=== PATIENT | male | born 1970 | race Caucasian/White ===

== ENCOUNTER 2016-05-19 10:13 | Emergency (ER) | payer MEDICARE | END 2016-05-19 11:25 | disposition home or self-care (01) | LOC: ER1 10:13 | DX: B37.0 Candidal stomatitis (principal); I10 Essential (primary) hypertension; F17.210 Nicotine dependence, cigarettes, uncomplicated | CPT/HCPCS: 99282 ==

== ENCOUNTER 2016-06-04 09:04 | Emergency (ER) | payer MEDICARE ==
[2016-06-04 09:42] LABS: HEMOGLOBIN 15.4 gm/dl (14.0-17.5); RED BLOOD COUNT 4.91 M/UL (4.20-5.50); WHITE BLOOD COUNT 6.1 K/UL (4.5-11.0)
[2016-06-04 09:52] LABS: BUN/CREATININE RATIO 27 (0-10)
== END 2016-06-04 14:50 | disposition home or self-care (01) ==
LOC: ER1 09:04
PROVIDERS: Emergency Medicine
DX: R31.9 Hematuria, unspecified (principal); K56.41 Fecal impaction; B17.9 Acute viral hepatitis, unspecified; I10 Essential (primary) hypertension; F17.210 Nicotine dependence, cigarettes, uncomplicated; Z79.899 Other long term (current) drug therapy
CPT/HCPCS: 36415; 76870; 80053; 80074; 81001; 82150; 83690; 85025; 87086; 96360; 99284; J7030; J7050; Q9962

== ENCOUNTER 2016-06-09 21:04 | Emergency (ER) | payer MEDICARE | END 2016-06-09 22:30 | disposition left against medical advice (07) | LOC: ER1 21:04 | DX: R10.30 Lower abdominal pain, unspecified (principal); F17.210 Nicotine dependence, cigarettes, uncomplicated | CPT/HCPCS: 36415; 99284 ==

== ENCOUNTER 2020-09-20 17:21 | Inpatient (IN) | payer OTHER ==
[~2020-09-20] VITALS: Ht 162.6 cm; Wt 104.3 kg
[~2020-09-20 17:21] MED LIST: DELSYM30 MG/5 ML PO; FLONASE 0.05% N16 GM; LISINOPRIL10 MG PO
[2020-09-20 18:33] LABS: HEMOGLOBIN 11.6 gm/dl (14.0-17.5); RED BLOOD COUNT 3.93 M/UL (4.20-5.50); WHITE BLOOD COUNT 11.6 K/UL (4.5-11.0)
[2020-09-20 18:49] LABS: BUN/CREATININE RATIO 20 (0-10)
[2020-09-20 21:51] LABS: BUN/CREATININE RATIO 17 (0-10)
[2020-09-21 07:03] LABS: HEMOGLOBIN 11.9 gm/dl (14.0-17.5); RED BLOOD COUNT 3.9 M/UL (4.20-5.50); WHITE BLOOD COUNT 9.4 K/UL (4.5-11.0)
[2020-09-21 07:26] LABS: BUN/CREATININE RATIO 16 (0-10)
[2020-09-22 05:54] LABS: HEMOGLOBIN 10.9 gm/dl (14.0-17.5); RED BLOOD COUNT 3.6 M/UL (4.20-5.50); WHITE BLOOD COUNT 10.2 K/UL (4.5-11.0)
[2020-09-22 08:21] LABS: BUN/CREATININE RATIO 24 (0-10)
[2020-09-23 06:02] LABS: HEMOGLOBIN 11.6 gm/dl (14.0-17.5); RED BLOOD COUNT 3.84 M/UL (4.20-5.50)
[2020-09-23 06:12] LABS: BUN/CREATININE RATIO 20 (0-10)
--- NOTE | 2020-09-24 03:43 | NUR ---
2199 DAMIAN PRITCHETT NOTIFIED OF PATIENT GLUCOSE OF 533. RECIEVED ORDERS TO COVER PATIENT WITH 5 MORE UNITS OF INSULIN ON TOP OF WHAT HE RECIEVED WITH HIS SLIDING SCALE COVERAGE. PATIENT HAS NO COMPLAINTS AT THIS TIME BESIDES THIRST. PATIENT WAS ASKING FOR GRAM CRACKERS AND INFORMED PATIENT THAT HIS IS ON A DIABETIC DIET. PATIENT VERBALIZED UNDERSTANDING
[2020-09-24 07:14] LABS: HEMOGLOBIN 11.4 gm/dl (14.0-17.5); RED BLOOD COUNT 3.73 M/UL (4.20-5.50)
--- NOTE | 2020-09-24 07:14 | NUR ---
TELE NOTIFIED NURSING OF PATIENT GOING INTO AFIB WITH RVR X 2 WITH HR GOING UP TO 150'S THEN BRADYING DOWN TO 50'S, AND A COUPLE RUNS OF SVT. MACHINIST APPRENTICE MD MARTIN NOTIFIED. NEW TELEPHONE ORDERS FOR 12 LEAD EKG AND CARDIOLOGY CONSULT.
[2020-09-24 07:18] LABS: WHITE BLOOD COUNT 7.3 K/UL (4.5-11.0)
[2020-09-24 07:43] LABS: BUN/CREATININE RATIO 21 (0-10)
--- NOTE | 2020-09-24 08:03 | NUR ---
0735- DR. NOEL ELECTRIC REFRIGERATOR SERVICER NOTIFIED OF PATIENT IN AFIB RVR AGAIN WITH HR 150-160'S, NEW ORDERS FOR CARDIZEM 10MG ONCE IVP, REPEAT IN 10 MINS IF HR IS STILL TACHY. 12 LEAD EKG, CXR, AND CMP.
--- NOTE | 2020-09-24 08:18 | NUR ---
DR. MOREJON NOTIFIED OF PT'S AFIB WITH RVR AND TACHYCARDIA UP TO 180 RUNNING 140'S AT THIS TIME AND PREVIOUS ORDERS FROM CARPET YARN WINDER OPERATOR DR. NOEL. NEW ORDERS FOR METOPROLOL 25MG PO BID.
[2020-09-25 06:47] LABS: HEMOGLOBIN 11.6 gm/dl (14.0-17.5); RED BLOOD COUNT 3.77 M/UL (4.20-5.50); WHITE BLOOD COUNT 7.4 K/UL (4.5-11.0)
[2020-09-25 07:19] LABS: BUN/CREATININE RATIO 16 (0-10)
[2020-09-25] MEDS ORDERED: LOPRESSOR 25 MG25 MG PO (10:03)
[2020-09-25] MEDS ORDERED: ASPIRIN EC81 MG PO (10:03)
[2020-09-25] MEDS ORDERED: METFORMIN HCL850 MG PO (10:03)
[2020-09-25] MEDS ORDERED: DECADRON6 MG PO (10:03)
[2020-09-25] MEDS ORDERED: HUMULIN 70100 UNIT/2 SC (10:03)
[2020-09-25] MEDS ORDERED: COMBIVENT RESPIM4 GM INH (10:08)
[2020-09-25] MEDS ORDERED: NICOTINE PATCH1 EAC1 TD (10:08)
--- NOTE | 2020-09-25 11:29 | NUR ---
PATIENTS ROOM AIR SAT. 87%.
--- NOTE | 2020-09-25 13:35 | NUR ---
PATIENT WITH DISCHARGE ORDER TO HOME WITH O2 THERAPY. PORTABLE O2 TANK DELIVERED TO ROOM AND USAGE EXPLAIN PER NURSE, PATIENT VERBALIZED UNDERSTANDING. PATIENT DISCHARGE INSTRUCTIONS EXPALINED AND PATIENT VERBALIZED UNDERSTANDING. PATIENT STATED HE COULD NOT GET ANY ONE TO TAKE HIM HOME. NURSING AND CASE MANAGEMENT ATTEMPTED TO GET CONTACTS TO HEAD TELLER PATIENT AND HOME ADDRESS, PATIENT STATED HE DIDN'T HAVE ANYONES NUMBER AND DID NOT KNOW THE ADDRESS TO THE APPARTMENTS, HE JUST MOVED INTO THEM BUT IT WAS [place] [employer]. UNABLE TO FIND APPARTMENTS VIA INTERNET SEARCH. ATTEMPTED TO CONTACT NEXT OF KIN LISTED, NO ANSWER MULTIPLE TIMES. PATIENT VERBALIZED WISHES TO JUST WALK OUT, STAFF EXPLAINED THAT WE NEED TO TRY TO FIND A WAY TO TRANSPORT HOME. PATIENT WAS BECOMING AGGITATED AND REINSISTED THAT HE JUST WALK, HE WOULD FIND A RIDE. CASE MANAGEMENT AND NURSES ATTEMPTED TO FIND TRANSPORT SERVICE TO TAKE PATIENT HOME, BUT THOSE CONTACTED WOULD NOT DUE TO HIS COVID STATUS. PATIENT WALKED OUT OF HOSPITAL WITHOUT PORTABLE OXYGEN TANK. STAFF ATTEMPTED TO FIND PATIENT IN PARKING LOT UNSUCCESSFULLY.
--- NOTE | 2020-09-25 14:08 | NUR ---
NURSING CALLED BY ER SECURITY, PATIENT HAD RETUREND TO ER AND WAS WAITING IN COVID ROOM. PATIENT APPOLIGIZED, STATED IT WAS TOO HOT OUT THERE CAN HE WAIT IN HIS ROOM WHILE WE CONTINUE TO FIND TRANSPORT. O2 APPLIED TO PATIENT. PATIENT EXPLAINED RISK OF GOING WITHOUT OXYGEN AND WALKING WITH COVID STATUS. PATIENT APPOLOGIZED ONCE AGAIN, STATED HE WAS JUST READY TO LEAVE SO HE DID BUT REALIZED HE COUDLNT MAKE IT. NEXT OF KIN CALLED WHILE TRANSPORTING PATIENT BACK TO HIS ROOM, SHE SAID SHE WAS NOT COMING TO PICK HIM UP DUE TO HIM BEING COVID + BUT WOULD ATTEMPT TO CONTACT THE DAUGHTER VIA SOCIAL MEDIA, SHE DID NOT HAVE HER NUMBER. PATIENT CURRENTLY BACK IN ROOM, AWAITING RIDE. O2 IN PLACE AT 2LPM VIA NC. NO DISTRESS NOTED AT THIS TIME.
--- NOTE | 2020-09-25 15:44 | NUR ---
PATIENT NEXT OF KIN CAME TO TRANSPORT RESISDENT HOME. PORTABLE O2 TANK SENT HOME WITH RESIDENT. RESIDENT GIVEN NUMBER AND INSTRUCTIONS TO CALL SMS FOR HOME O2 CONCENTRATOR ONCE HE ARRIVES HOME AND KNOWS HIS CURRENT ADDRESS. PATIENT VERBALIZED UNDERSTANDING.
== END 2020-09-25 15:20 | disposition home or self-care (01) | DRG 177 ==
LOC: ER1 17:21 → CDU 21:20 → M/S 21:20
PROVIDERS: Internal Medicine; Internal Medicine Infectious Disease; Preventive Medicine Occupational Medicine; ADMIT Internal Medicine
PROC: XW033E5 Introduction of Remdesivir Anti-infective into Peripheral Vein, Percutaneous Approach, New Technology Group 5 (ICD-10-PCS; principal; 2020-09-20)
PROC: 3E0333Z Introduction of Anti-inflammatory into Peripheral Vein, Percutaneous Approach (ICD-10-PCS; 2020-09-20)
PROC: 8E0ZXY6 Isolation (ICD-10-PCS; 2020-09-21)
PROC: B24BZZZ Ultrasonography of Heart with Aorta (ICD-10-PCS; 2020-09-25)
DX: U07.1 COVID-19 (principal); J12.82 Pneumonia due to coronavirus disease 2019; J96.01 Acute respiratory failure with hypoxia; J44.0 Chronic obstructive pulmonary disease with (acute) lower respiratory infection; J98.11 Atelectasis; J90 Pleural effusion, not elsewhere classified; I48.0 Paroxysmal atrial fibrillation; I10 Essential (primary) hypertension; F17.210 Nicotine dependence, cigarettes, uncomplicated; I34.0 Nonrheumatic mitral (valve) insufficiency; E11.65 Type 2 diabetes mellitus with hyperglycemia; Z90.89 Acquired absence of other organs; Z79.82 Long term (current) use of aspirin; Z79.84 Long term (current) use of oral hypoglycemic drugs; Z83.3 Family history of diabetes mellitus; Z90.49 Acquired absence of other specified parts of digestive tract; Z79.899 Other long term (current) drug therapy
CPT/HCPCS: ECHO; 36415; 36600; 71045; 71046; 80048; 80053; 82550; 82553; 82803; 82962; 83036; 83605; 83690; 83735; 83874; 83880; 84443; 84484; 85025; 85027; 85379; 85652; 86140; 93005; 93306; 94640; 94664; 94760; 96374; 96375; 99285; J0456; J0696; J1100; J1650; J7030; Q9967; U0002